=== PATIENT | male | born 1945 | race Caucasian/White ===

== ENCOUNTER 2022-02-12 19:49 | Inpatient (IN) | payer MEDICARE ==
[~2022-02-12] VITALS: Ht 180.3 cm; Wt 79.4 kg
[2022-02-12 20:19] LABS: Hemoglobin 13.1 g/dL (13.5-17.5)
[2022-02-12 20:36] LABS: Albumin, Blood 2.6 g/dL (3.4-5.0); Albumin/Globulin Ratio 0.7 (0.8-1.8); Bilirubin, Total 1.8 mg/dL (0.1-1.0); Bun/Creatinine Ratio 22.8 (12.0-20.0); Calcium, Blood 9.6 mg/dL (8.5-10.1); Creatinine, Blood 1.67 mg/dL (0.60-1.20); Globulin, Blood 3.8 g/dL (2.2-4.0); Potassium, Blood 4.3 mmol/L (3.5-5.5); Total Protein, Blood 6.4 g/dL (6.4-8.2)
[2022-02-12 20:39] LABS: Hematocrit 37.5 % (37.0-53.0); Mean Corpuscular HGB 32.3 pg (26.0-34.0); Mean Corpuscular HGB Conc 34.9 g/dL (31.5-36.5); Mean Corpuscular Volume 92 fL (80-100); Mean Platelet Volume 10.1 fL (9.1-12.4); Platelet Count 112 K/mm3 (150-400); RDW Coefficient Variation 14.6 % (11.7-14.2); RDW Standard Deviation 49.6 fL (35.1-46.3); Red Blood Cell Count 4.06 M/mm3 (4.30-5.90); White Blood Cell Count 12.93 K/mm3 (4.00-11.30)
[2022-02-12 20:45] LABS: BAND PERCENT MAN 12 % (0-8); BASOPHILS PERCENT MAN 0 % (0-2); EOSINOPHILS PERCENT MAN 0 % (0-6); METAMYELOCYTE ABSOLUTE MAN 0.12 K/mm3 (0.00-0.00); METAMYELOCYTE PERCENT MAN 1 % (0-0); NEUTROPHILS ABSOLUTE MAN 11.89 K/mm3 (1.96-9.15); SEG NEUTROPHILS PERCENT MAN 80 % (41-73); TOTAL CELLS COUNTED 100
[2022-02-12 20:46] LABS: LYMPHOCYTES ABSOLUTE MAN 0.12 K/mm3 (0.84-5.20); LYMPHOCYTES PERCENT MAN 1 % (21-46); MONOCYTES ABSOLUTE MAN 0.77 K/mm3 (0.16-1.47); MONOCYTES PERCENT MAN 6 % (4-13)
[2022-02-12 21:06] LABS: Source, Urine Voided
[2022-02-12 21:11] LABS: Bilirubin, Urine Neg (Neg); Blood, Urine 5+ (Neg); Glucose Qualitative, Urine Neg (Neg); Ketones, Urine 1+ (Neg); Leukocyte Esterase, Urine 2+ (Neg); Nitrite, Urine Pos (Neg); Protein, Urine 3+ (Neg); Specific Gravity, Urine 1.015 (1.003-1.022); Urobilinogen, Urine NORM (Normal)
[2022-02-12 21:24] LABS: Appearance, Urine Hazy (Clear); Color, Urine Amber (P-Yellow)
[2022-02-12 21:25] LABS: Amorphous Light (0-Heavy); Bacteria Many /hpf; Red Blood Cells, Urine 0-2 /hpf (0-2); Squamous Epithelial Cells Rare /hpf (Few); White Blood Cells, Urine 25-50 /hpf (0-5)
[2022-02-12 22:43] LABS: Creatine Kinase MB 19.4 ng/mL (0.0-3.6)
[2022-02-12 23:20] LABS: Creatine Kinase MB Index 0.1 (0.0-4.0)
[2022-02-13 01:02] LABS: Magnesium, Blood 2.9 mg/dL (1.6-2.4)
[2022-02-13] MEDS ORDERED: YONSA125 MG PO (02:19)
[2022-02-13] MEDS ORDERED: PRED5 PO (02:19)
[2022-02-13] MEDS ORDERED: PROLIA60 MG/1 ML SC (02:20)
[2022-02-13 03:53] LABS: Influenza A, PCR NEGATIVE (NEGATIVE); Influenza B, PCR NEGATIVE (NEGATIVE); Resp Syncytial Virus, PCR NEGATIVE (NEGATIVE); SARS-Cov-2 (COVID-19) PCR, MMC NEGATIVE (NEGATIVE)
[2022-02-13 04:49] LABS: Source, Urine Foley catheter
[2022-02-13 04:51] LABS: Bilirubin, Urine Neg (Neg); Blood, Urine 5+ (Neg); Glucose Qualitative, Urine Neg (Neg); Ketones, Urine 2+ (Neg); Leukocyte Esterase, Urine 1+ (Neg); Nitrite, Urine Pos (Neg); Protein, Urine 3+ (Neg); Specific Gravity, Urine 1.015 (1.003-1.022); Urobilinogen, Urine NORM (Normal)
[2022-02-13 05:28] LABS: BASOPHILS ABSOLUTE AUTO 0.09 K/mm3 (0.00-0.23); BASOPHILS PERCENT AUTO 1 % (0-2); Hematocrit 34.3 % (37.0-53.0); Hemoglobin 11.7 g/dL (13.5-17.5); LYMPHOCYTES ABSOLUTE AUTO 0.19 K/mm3 (0.84-5.20); LYMPHOCYTES PERCENT AUTO 1 % (21-46); MONOCYTES ABSOLUTE AUTO 0.48 K/mm3 (0.16-1.47); MONOCYTES PERCENT AUTO 3 % (4-13); Mean Corpuscular HGB 32.3 pg (26.0-34.0); Mean Corpuscular HGB Conc 34.1 g/dL (31.5-36.5); Mean Corpuscular Volume 95 fL (80-100); Mean Platelet Volume 10.7 fL (9.1-12.4); Platelet Count 93 K/mm3 (150-400); RDW Coefficient Variation 14.7 % (11.7-14.2); RDW Standard Deviation 51.6 fL (35.1-46.3); Red Blood Cell Count 3.62 M/mm3 (4.30-5.90); White Blood Cell Count 14.55 K/mm3 (4.00-11.30)
[2022-02-13 05:35] LABS: EOSINOPHILS ABSOLUTE AUTO 0.01 K/mm3 (0.00-0.68); EOSINOPHILS PERCENT AUTO 0 % (0-6); IMMATURE GRAN ABSOLUTE AUTO 0.21 K/mm3 (0.00-0.10); IMMATURE GRAN PERCENT AUTO 1 % (0-1); NEUTROPHILS ABSOLUTE AUTO 13.57 K/mm3 (1.96-9.15); NEUTROPHILS PERCENT AUTO 93 % (41-73)
[2022-02-13 05:45] LABS: Appearance, Urine Hazy (Clear); Color, Urine Yellow (P-Yellow)
[2022-02-13 05:47] LABS: Bacteria Few /hpf; Squamous Epithelial Cells Few /hpf (Few)
[2022-02-13 05:59] LABS: Albumin, Blood 2.2 g/dL (3.4-5.0); Albumin/Globulin Ratio 0.7 (0.8-1.8); Bilirubin, Total 1.2 mg/dL (0.1-1.0); Bun/Creatinine Ratio 21.5 (12.0-20.0); Calcium, Blood 8.9 mg/dL (8.5-10.1); Creatinine, Blood 1.95 mg/dL (0.60-1.20); Globulin, Blood 3.3 g/dL (2.2-4.0); Potassium, Blood 3.9 mmol/L (3.5-5.5); Total Protein, Blood 5.5 g/dL (6.4-8.2)
[2022-02-13 06:14] LABS: Free Thyroxine 1.66 ng/dL (0.70-1.60)
[2022-02-13 06:16] LABS: Thyroid Stimulating Hormone 1.23 uIU/mL (0.360-4.800)
[2022-02-13 06:43] LABS: Creatine Kinase MB 12.1 ng/mL (0.0-3.6); Creatine Kinase MB Index 0.1 (0.0-4.0)
[2022-02-13 14:04] LABS: Creatine Kinase MB 12.7 ng/mL (0.0-3.6); Creatine Kinase MB Index 0.2 (0.0-4.0)
[2022-02-13] MEDS ORDERED: TEMA30 PO (14:23)
[2022-02-13] MEDS ORDERED: BUPROPION XL150 M1 PO (14:23)
[2022-02-13] MEDS ORDERED: ASCO500 PO (14:24)
[2022-02-13] MEDS ORDERED: MAG6464 MG PO (14:24)
[2022-02-13] MEDS ORDERED: Vitamin D1000 UNI1 PO (14:25)
[2022-02-13] MEDS ORDERED: Alph-E-Mixed400 UNIT PO (14:25)
[2022-02-14 04:46] LABS: Hematocrit 32.4 % (37.0-53.0); Hemoglobin 11.2 g/dL (13.5-17.5); Mean Corpuscular HGB 32.2 pg (26.0-34.0); Mean Corpuscular HGB Conc 34.6 g/dL (31.5-36.5); Mean Corpuscular Volume 93 fL (80-100); Mean Platelet Volume 10.7 fL (9.1-12.4); Platelet Count 101 K/mm3 (150-400); RDW Coefficient Variation 14.8 % (11.7-14.2); RDW Standard Deviation 51.1 fL (35.1-46.3); Red Blood Cell Count 3.48 M/mm3 (4.30-5.90); White Blood Cell Count 16.29 K/mm3 (4.00-11.30)
[2022-02-14 05:15] LABS: Albumin, Blood 1.8 g/dL (3.4-5.0); Albumin/Globulin Ratio 0.5 (0.8-1.8); Bilirubin, Total 0.6 mg/dL (0.1-1.0); Bun/Creatinine Ratio 21.1 (12.0-20.0); Calcium, Blood 8.4 mg/dL (8.5-10.1); Creatinine, Blood 2.56 mg/dL (0.60-1.20); Globulin, Blood 3.5 g/dL (2.2-4.0); Potassium, Blood 4.2 mmol/L (3.5-5.5); Total Protein, Blood 5.3 g/dL (6.4-8.2)
[2022-02-14 05:29] LABS: BAND PERCENT MAN 13 % (0-8); BASOPHILS PERCENT MAN 0 % (0-2); EOSINOPHILS PERCENT MAN 0 % (0-6); LYMPHOCYTES ABSOLUTE MAN 0.16 K/mm3 (0.84-5.20); LYMPHOCYTES PERCENT MAN 1 % (21-46); MONOCYTES ABSOLUTE MAN 1.46 K/mm3 (0.16-1.47); MONOCYTES PERCENT MAN 9 % (4-13); NEUTROPHILS ABSOLUTE MAN 14.66 K/mm3 (1.96-9.15); SEG NEUTROPHILS PERCENT MAN 77 % (41-73); TOTAL CELLS COUNTED 100
[2022-02-15 05:17] LABS: Hematocrit 35.6 % (37.0-53.0); Hemoglobin 12.2 g/dL (13.5-17.5); Mean Corpuscular HGB 32.1 pg (26.0-34.0); Mean Corpuscular HGB Conc 34.3 g/dL (31.5-36.5); Mean Corpuscular Volume 94 fL (80-100); Mean Platelet Volume 10.9 fL (9.1-12.4); Platelet Count 128 K/mm3 (150-400); RDW Standard Deviation 52.3 fL (35.1-46.3); White Blood Cell Count 11.01 K/mm3 (4.00-11.30)
[2022-02-15 05:58] LABS: Albumin/Globulin Ratio 0.5 (0.8-1.8); Bilirubin, Total 0.6 mg/dL (0.1-1.0); Bun/Creatinine Ratio 21.5 (12.0-20.0); Calcium, Blood 8.8 mg/dL (8.5-10.1); Creatinine, Blood 2.75 mg/dL (0.60-1.20); Globulin, Blood 3.7 g/dL (2.2-4.0); Magnesium, Blood 2.7 mg/dL (1.6-2.4); Potassium, Blood 3.9 mmol/L (3.5-5.5); Total Protein, Blood 5.7 g/dL (6.4-8.2)
[2022-02-15 06:00] LABS: BAND PERCENT MAN 10 % (0-8); BASOPHILS PERCENT MAN 0 % (0-2); EOSINOPHILS ABSOLUTE MAN 0.11 K/mm3 (0.00-0.68); EOSINOPHILS PERCENT MAN 1 % (0-6); LYMPHOCYTES ABSOLUTE MAN 0.44 K/mm3 (0.84-5.20); LYMPHOCYTES PERCENT MAN 4 % (21-46); MONOCYTES PERCENT MAN 10 % (4-13); MYELOCYTE ABSOLUTE MAN 0.44 K/mm3 (0.00-0.00); MYELOCYTE PERCENT MAN 4 % (0-0); NEUTROPHILS ABSOLUTE MAN 8.91 K/mm3 (1.96-9.15); SEG NEUTROPHILS PERCENT MAN 71 % (41-73); TOTAL CELLS COUNTED 100
[2022-02-16 05:07] LABS: Hematocrit 34.2 % (37.0-53.0); Hemoglobin 11.8 g/dL (13.5-17.5); Mean Corpuscular HGB 32.4 pg (26.0-34.0); Mean Corpuscular HGB Conc 34.5 g/dL (31.5-36.5); Mean Corpuscular Volume 94 fL (80-100); Mean Platelet Volume 10.5 fL (9.1-12.4); Platelet Count 149 K/mm3 (150-400); RDW Standard Deviation 51.8 fL (35.1-46.3); Red Blood Cell Count 3.64 M/mm3 (4.30-5.90); White Blood Cell Count 9.99 K/mm3 (4.00-11.30)
[2022-02-16 05:48] LABS: Albumin, Blood 1.9 g/dL (3.4-5.0); Albumin/Globulin Ratio 0.6 (0.8-1.8); Bilirubin, Total 0.4 mg/dL (0.1-1.0); Bun/Creatinine Ratio 22.1 (12.0-20.0); Calcium, Blood 8.5 mg/dL (8.5-10.1); Creatinine, Blood 2.67 mg/dL (0.60-1.20); Globulin, Blood 3.3 g/dL (2.2-4.0); Magnesium, Blood 2.3 mg/dL (1.6-2.4); Phosphorus, Blood 3.4 mg/dL (2.5-4.9); Potassium, Blood 3.8 mmol/L (3.5-5.5); Thyroid Stimulating Hormone 3.52 uIU/mL (0.360-4.800); Total Protein, Blood 5.2 g/dL (6.4-8.2); Uric Acid, Blood 6.1 mg/dL (3.5-7.2)
[2022-02-16 05:49] LABS: BAND PERCENT MAN 6 % (0-8); BASOPHILS PERCENT MAN 0 % (0-2); EOSINOPHILS ABSOLUTE MAN 0.39 K/mm3 (0.00-0.68); EOSINOPHILS PERCENT MAN 4 % (0-6); LYMPHOCYTES ABSOLUTE MAN 0.79 K/mm3 (0.84-5.20); LYMPHOCYTES PERCENT MAN 8 % (21-46); MONOCYTES ABSOLUTE MAN 0.29 K/mm3 (0.16-1.47); MONOCYTES PERCENT MAN 3 % (4-13); MYELOCYTE ABSOLUTE MAN 0.49 K/mm3 (0.00-0.00); MYELOCYTE PERCENT MAN 5 % (0-0); NEUTROPHILS ABSOLUTE MAN 7.99 K/mm3 (1.96-9.15); SEG NEUTROPHILS PERCENT MAN 74 % (41-73); TOTAL CELLS COUNTED 100
[2022-02-17 05:37] LABS: Hematocrit 31.9 % (37.0-53.0); Hemoglobin 10.7 g/dL (13.5-17.5); Mean Corpuscular HGB 32.2 pg (26.0-34.0); Mean Corpuscular HGB Conc 33.5 g/dL (31.5-36.5); Mean Corpuscular Volume 96 fL (80-100); Mean Platelet Volume 10.5 fL (9.1-12.4); Platelet Count 202 K/mm3 (150-400); RDW Coefficient Variation 15.1 % (11.7-14.2); RDW Standard Deviation 53.1 fL (35.1-46.3); Red Blood Cell Count 3.32 M/mm3 (4.30-5.90); White Blood Cell Count 12.93 K/mm3 (4.00-11.30)
[2022-02-17 06:10] LABS: Albumin, Blood 1.8 g/dL (3.4-5.0); Albumin/Globulin Ratio 0.5 (0.8-1.8); Bilirubin, Total 0.2 mg/dL (0.1-1.0); Bun/Creatinine Ratio 25.7 (12.0-20.0); Calcium, Blood 8.2 mg/dL (8.5-10.1); Creatinine, Blood 2.22 mg/dL (0.60-1.20); Globulin, Blood 3.3 g/dL (2.2-4.0); Phosphorus, Blood 3.9 mg/dL (2.5-4.9); Potassium, Blood 3.8 mmol/L (3.5-5.5); Total Protein, Blood 5.1 g/dL (6.4-8.2)
[2022-02-17 06:57] LABS: BAND PERCENT MAN 5 % (0-8); BASOPHILS PERCENT MAN 0 % (0-2); EOSINOPHILS ABSOLUTE MAN 0.12 K/mm3 (0.00-0.68); EOSINOPHILS PERCENT MAN 1 % (0-6); LYMPHOCYTES ABSOLUTE MAN 0.38 K/mm3 (0.84-5.20); LYMPHOCYTES PERCENT MAN 3 % (21-46); METAMYELOCYTE ABSOLUTE MAN 0.64 K/mm3 (0.00-0.00); METAMYELOCYTE PERCENT MAN 5 % (0-0); MONOCYTES PERCENT MAN 7 % (4-13); MYELOCYTE ABSOLUTE MAN 0.51 K/mm3 (0.00-0.00); MYELOCYTE PERCENT MAN 4 % (0-0); NEUTROPHILS ABSOLUTE MAN 10.34 K/mm3 (1.96-9.15); SEG NEUTROPHILS PERCENT MAN 75 % (41-73); TOTAL CELLS COUNTED 100
[2022-02-18 05:24] LABS: Hematocrit 32.8 % (37.0-53.0); Hemoglobin 10.8 g/dL (13.5-17.5); Mean Corpuscular HGB 31.8 pg (26.0-34.0); Mean Corpuscular HGB Conc 32.9 g/dL (31.5-36.5); Mean Corpuscular Volume 97 fL (80-100); Mean Platelet Volume 10.5 fL (9.1-12.4); Platelet Count 260 K/mm3 (150-400); RDW Coefficient Variation 15.1 % (11.7-14.2); RDW Standard Deviation 53.4 fL (35.1-46.3); White Blood Cell Count 14.25 K/mm3 (4.00-11.30)
[2022-02-18 05:50] LABS: Albumin, Blood 2.1 g/dL (3.4-5.0); Albumin/Globulin Ratio 0.6 (0.8-1.8); Bilirubin, Total 0.5 mg/dL (0.1-1.0); Bun/Creatinine Ratio 28.7 (12.0-20.0); Calcium, Blood 8.1 mg/dL (8.5-10.1); Creatinine, Blood 1.74 mg/dL (0.60-1.20); Globulin, Blood 3.4 g/dL (2.2-4.0); Magnesium, Blood 1.7 mg/dL (1.6-2.4); Phosphorus, Blood 3.3 mg/dL (2.5-4.9); Potassium, Blood 3.3 mmol/L (3.5-5.5); Total Protein, Blood 5.5 g/dL (6.4-8.2)
[2022-02-18 06:01] LABS: BAND PERCENT MAN 3 % (0-8); BASOPHILS PERCENT MAN 0 % (0-2); EOSINOPHILS ABSOLUTE MAN 0.28 K/mm3 (0.00-0.68); EOSINOPHILS PERCENT MAN 2 % (0-6); LYMPHOCYTES ABSOLUTE MAN 0.57 K/mm3 (0.84-5.20); LYMPHOCYTES PERCENT MAN 4 % (21-46); MONOCYTES ABSOLUTE MAN 0.57 K/mm3 (0.16-1.47); MONOCYTES PERCENT MAN 4 % (4-13); MYELOCYTE ABSOLUTE MAN 0.42 K/mm3 (0.00-0.00); MYELOCYTE PERCENT MAN 3 % (0-0); NEUTROPHILS ABSOLUTE MAN 12.39 K/mm3 (1.96-9.15); SEG NEUTROPHILS PERCENT MAN 84 % (41-73); TOTAL CELLS COUNTED 100
== END 2022-02-18 11:08 | disposition hospice, home (50) | DRG 871 ==
LOC: ER 19:49 → MEDS 02-13 00:11
PROVIDERS: Emergency Medicine; Family Medicine; ADMIT Internal Medicine
DX: A41.81 Sepsis due to Enterococcus (principal); J18.9 Pneumonia, unspecified organism; I21.A1 Myocardial infarction type 2; N39.0 Urinary tract infection, site not specified; N17.9 Acute kidney failure, unspecified; Z66 Do not resuscitate; Z51.5 Encounter for palliative care; M62.82 Rhabdomyolysis; N25.81 Secondary hyperparathyroidism of renal origin; E87.2 Acidosis; E87.1 Hypo-osmolality and hyponatremia; N13.4 Hydroureter; Z20.822 Contact with and (suspected) exposure to COVID-19; E88.09 Other disorders of plasma-protein metabolism, not elsewhere classified; S00.93XA Contusion of unspecified part of head, initial encounter; I25.5 Ischemic cardiomyopathy; N20.0 Calculus of kidney; I12.9 Hypertensive chronic kidney disease with stage 1 through stage 4 chronic kidney disease, or unspecified chronic kidney disease; D69.6 Thrombocytopenia, unspecified; N18.9 Chronic kidney disease, unspecified; I25.10 Atherosclerotic heart disease of native coronary artery without angina pectoris; E86.0 Dehydration; D63.1 Anemia in chronic kidney disease; F41.9 Anxiety disorder, unspecified; Z95.1 Presence of aortocoronary bypass graft; Z85.46 Personal history of malignant neoplasm of prostate; Z92.21 Personal history of antineoplastic chemotherapy; W18.30XA Fall on same level, unspecified, initial encounter
CPT/HCPCS: 0241U; 36415; 51701; 70450; 71045; 74176; 76770; 80053; 80400; 81001; 82533; 82550; 82553; 83735; 83880; 84100; 84439; 84443; 84484; 84550; 85025; 87077; 87086; 87186; 93005; 93010; 96365; 96366; 96375; 97110; 97116; 97162; 97166; 97530; 97535; 99285-25; A9270; C8929; J0456; J0696; J0834; J1650; J2405; J2550; J7030; J7050; J7512; Q9957

== ENCOUNTER 2024-06-26 09:10 | Emergency (ER) | payer MEDICARE ==
[~2024-06-26] VITALS: Ht 177.8 cm; Wt 81.7 kg
[~2024-06-26 09:10] MED LIST: ASCO500 PO; Alph-E-Mixed400 UNIT PO; BUPROPION XL150 M1 PO; MAG6464 MG PO; PRED5 PO; PROLIA60 MG/1 ML SC; TEMA30 PO; Vitamin D1000 UNI1 PO; YONSA125 MG PO
[2024-06-26 09:28] LABS: Source, Urine Clean Catch
[2024-06-26 09:30] LABS: Appearance, Urine Cloudy (Clear); Bilirubin, Urine Neg (Neg); Blood, Urine 2+ (Neg); Color, Urine Yellow (P-Yellow); Glucose Qualitative, Urine Neg (Neg); Ketones, Urine Neg (Neg); Leukocyte Esterase, Urine 3+ (Neg); Nitrite, Urine Pos (Neg); Protein, Urine 1+ (Neg); Urobilinogen, Urine NORM (Normal)
[2024-06-26 09:38] LABS: Bacteria Many /hpf
[2024-06-26 09:39] LABS: Amorphous Heavy (0-Heavy); Calcium Oxalate Crystals Rare /hpf
[2024-06-26 09:40] LABS: Red Blood Cells, Urine 0-2 /hpf (0-2); Squamous Epithelial Cells Rare /hpf (Few)
[2024-06-26 09:57] LABS: BASOPHILS ABSOLUTE AUTO 0.05 K/mm3 (0.00-0.23); BASOPHILS PERCENT AUTO 1 % (0-2); EOSINOPHILS ABSOLUTE AUTO 0.27 K/mm3 (0.00-0.68); EOSINOPHILS PERCENT AUTO 3 % (0-6); Hematocrit 39.2 % (37.0-53.0); Hemoglobin 12.9 g/dL (13.5-17.5); IMMATURE GRAN ABSOLUTE AUTO 0.05 K/mm3 (0.00-0.10); IMMATURE GRAN PERCENT AUTO 1 % (0-1); LYMPHOCYTES PERCENT AUTO 10 % (21-46); MONOCYTES ABSOLUTE AUTO 0.65 K/mm3 (0.16-1.47); MONOCYTES PERCENT AUTO 7 % (4-13); Mean Corpuscular HGB 31.1 pg (26.0-34.0); Mean Corpuscular HGB Conc 32.9 g/dL (31.5-36.5); Mean Corpuscular Volume 95 fL (80-100); Mean Platelet Volume 9.1 fL (9.1-12.4); NEUTROPHILS ABSOLUTE AUTO 7.19 K/mm3 (1.96-9.15); NEUTROPHILS PERCENT AUTO 79 % (41-73); Platelet Count 267 K/mm3 (150-400); RDW Coefficient Variation 13.7 % (11.7-14.2); Red Blood Cell Count 4.15 M/mm3 (4.30-5.90); White Blood Cell Count 9.11 K/mm3 (4.00-11.30)
[2024-06-26 10:21] LABS: Albumin, Blood 3.4 g/dL (3.4-5.0); Bilirubin, Total 0.9 mg/dL (0.1-1.0); Bun/Creatinine Ratio 20.3 (12.0-20.0); Calcium, Blood 8.8 mg/dL (8.5-10.1); Creatinine, Blood 0.89 mg/dL (0.60-1.20); Free Thyroxine 1.04 ng/dL (0.70-1.60); Globulin, Blood 3.3 g/dL (2.2-4.0); Potassium, Blood 4.2 mmol/L (3.5-5.5); Thyroid Stimulating Hormone 1.43 uIU/mL (0.360-4.800); Total Protein, Blood 6.7 g/dL (6.4-8.2)
[2024-06-26] MEDS ORDERED: Cefpodoxime Proxetil 200 MG Tab PO ONE (10:25)
[2024-06-26] MEDS ORDERED: CEFP200 PO (11:02)
[2024-06-26 11:15] VITALS: BP 154/76
== END 2024-06-26 11:24 | disposition home or self-care (01) ==
LOC: ER 09:10
PROVIDERS: Emergency Medicine; Physician Assistant
DX: N39.0 Urinary tract infection, site not specified (principal); Z87.891 Personal history of nicotine dependence
CPT/HCPCS: 70450; 71045; 80053; 81001; 84439; 84443; 85025; 87086; 93005; 93010; 99284-25; A9270

== ENCOUNTER → 2024-07-27 | Outpatient (CLI) | payer MEDICARE ==
[~2024-07-27] MED LIST changes: +CEFP200 PO
[2024-07-27 13:03] LABS: Appearance, Urine Hazy (Clear); Bilirubin, Urine Neg (Neg); Blood, Urine 5+ (Neg); Color, Urine Yellow (P-Yellow); Glucose Qualitative, Urine Neg (Neg); Ketones, Urine Neg (Neg); Leukocyte Esterase, Urine 3+ (Neg); Nitrite, Urine Pos (Neg); Protein, Urine 2+ (Neg); Specific Gravity, Urine 1.015 (1.003-1.022); Urobilinogen, Urine NORM (Normal)
[2024-07-27 13:29] LABS: Amorphous Light (0-Heavy); Bacteria Few /hpf; Red Blood Cells, Urine TNTC /hpf (0-2); Squamous Epithelial Cells Few /hpf (Few); White Blood Cells, Urine 50-100 /hpf (0-5)
== END | disposition home or self-care (01) ==
LOC: LAB 10:00 → LAB SHORT 10:00
PROVIDERS: Nurse Practitioner Family
DX: Z46.6 Encounter for fitting and adjustment of urinary device (principal)
CPT/HCPCS: 81001; 87077; 87086; 87186

== ENCOUNTER 2024-10-27 16:37 | Emergency (ER) | payer MEDICARE ==
[~2024-10-27] VITALS: Ht 177.8 cm; Wt 86.2 kg
[2024-10-27 18:03] VITALS: BP 162/74
[2024-10-27] MEDS ORDERED: Lidocaine 2% Jelly Uro-Jet UR ONE (19:10)
== END 2024-10-27 20:30 | disposition home or self-care (01) ==
LOC: ER 16:37
DX: T83.091A Other mechanical complication of indwelling urethral catheter, initial encounter (principal); Z87.891 Personal history of nicotine dependence; Z79.899 Other long term (current) drug therapy
CPT/HCPCS: 51702; 51798; 99283-25

== ENCOUNTER → 2025-08-16 | Outpatient (CLI) | payer MEDICARE ==
[~2025-08-16] MED LIST changes: +Amoxicillin875 MG PO; +Roxicodone5 MG PO
[2025-08-16 18:05] LABS: Bilirubin, Urine Neg (Neg); Color, Urine Red (P-Yellow); Glucose Qualitative, Urine Neg (Neg); Ketones, Urine Neg (Neg); Leukocyte Esterase, Urine 3+ (Neg); Protein, Urine 3+ (Neg); Specific Gravity, Urine 1.015 (1.003-1.022); Urobilinogen, Urine NORM (Normal)
[2025-08-16 18:18] LABS: Red Blood Cells, Urine TNTC /hpf (0-2)
== END ==
LOC: LAB 17:47 → LAB SHORT 17:47
PROVIDERS: Nurse Practitioner Family
DX: N39.0 Urinary tract infection, site not specified (principal); N40.1 Benign prostatic hyperplasia with lower urinary tract symptoms; C61 Malignant neoplasm of prostate
CPT/HCPCS: 81001; 87086